=== PATIENT | female | born 1985 | race Caucasian/White ===

== ENCOUNTER 2018-03-02 18:13 | Emergency (ER) | payer OTHER ==
[2018-03-02 18:30] VITALS: BP 130/76
--- NOTE | 2018-03-02 18:46 | UC ---
- HPI Summary HPI Summary: 33 y/o female presents to the urgent care requesting a test. Pt reports she did a home test and was positive and wants to make sure she is . Pt has been feeling mild nausea when she wakes up for the past week. Pt has the [place] shot for the past 6 years and was stopped in 07/2017 and since then she has been trying to get . Pt denies fever, urinary symptoms, abdominal pain, SOB, chest pain, N/V/D, Hx of STD's, LMP: 12/30/2017 w/ irregular menstrual cycles. - History of Current Complaint Chief Complaint: UCGU Stated Complaint: TEST Time Seen by Provider: 03/02/18 18:40 Hx Obtained From: Patient Onset/Duration: Started Days Ago - mild nausea in the morning Severity: Mild Current Severity: Mild Pain Intensity: 0 Location of Pain: None Character: None Aggravating Factors: Nothing Alleviating Factors: Other: - eating Associated Signs and Symptoms: Positive: Negative - Assessment Hx Now: No History of Ectopic : No Hx Pelvic Inflammatory Disease: No Vaginal Bleeding Amount: None Hx Last Menstrual Period: 12/30/17 Hx Hysterectomy: No History of STI/STD: No - Risk Factors Ectopic Risk Factor: Maternal Age ^ 30 Ovarian Torsion Risk Factor: Reproductive Age - Additional Pertinent History Gestational Diabetes: No - Allergies/Home Medications Allergies/Adverse Reactions: Allergies Allergy/AdvReac Type Severity Reaction Status Date / Time No Known Allergies Allergy Verified 03/02/18 18:29 PMH/Surg Hx/FS Hx/Imm Hx Previously Healthy: Yes Respiratory History: Asthma Other Psychological History: ADHD - Surgical History Surgical History: Yes Surgery Procedure, Year, and Place: TONSILLECTOMY AND ADENOIDECTOMY. C- SECTIONS X2 - Family History Known Family History: Positive: Diabetes - Social History Occupation: Employed Full-time Lives: With Family Alcohol Use: None Substance Use Type: None Smoking Status (MU): Never Smoked Tobacco Review of Systems Constitutional: Negative Skin: Negative Eyes: Negative ENT: Negative Respiratory: Negative Cardiovascular: Negative Gastrointestinal: Nausea - in the morning resolves by eating Genitourinary: Negative Motor: Negative Neurovascular: Negative Musculoskeletal: Negative Neurological: Negative Psychological: Negative Is Patient Immunocompromised?: No All Other Systems Reviewed And Are Negative: Yes Physical Exam - Summary Physical Exam Summary: VITAL SIGNS: Reviewed. GENERAL: Patient is a well developed and nourished female who is sitting comfortable in the examining table. Patient is not in any acute respiratory distress. HEAD AND FACE: No signs of trauma. No ecchymosis, hematomas or skull depressions. No sinus tenderness. EYES: PERRLA, EOMI x 2, No injected conjunctiva, clear watery eyes, no nystagmus. No photophobia. EARS: Hearing grossly intact. Ear canals and tympanic membranes are within normal limits. MOUTH: pharynx with no erythema, no exudates,no palatal petechiae. no B/L tonsillar enlargement Uvula in midline. NECK: Supple, trachea is midline, no lymphadenopathy, no JVD, no carotid bruit, no c-spine tenderness, neck with full ROM. CHEST: Symmetric, no tenderness at palpation LUNGS: Clear to auscultation bilaterally. No wheezing or crackles. CVS: Regular rate and rhythm, S1 and S2 present, no murmurs or gallops appreciated. ABDOMEN: Soft, non-tender. No signs of distention. No rebound no guarding, and no masses palpated. Bowel sounds are normal. BACK:no scoliosis or lesions, non tender to palpation, No B/L CVA tenderness EXTREMITIES: FROM in all major joints, no edema, no cyanosis or clubbing. NEURO: Alert and oriented x 3. No acute neurological deficits. Speech is normal and follows commands. SKIN: Dry and warm - Physical Exam Triage Information Reviewed: Yes Course/Dx - Course Course Of Treatment: 33 y/o female presents to the urgent care requesting a test. Pt reports she did a home test and was positive and wants to make sure she is . Pt has been feeling mild nausea when she wakes up for the past week. Pt has the [place] shot for the past 6 years and was stopped in 07/2017 and since then she has been trying to get . Pt denies fever, urinary symptoms, abdominal pain, SOB, chest pain, N/ V/D, Hx of STD's. LMP: 12/30/2017 w/ irregular menstrual cycles. Hx obtained. PE: WNL. Urine test ordered: positive, UA: + ketones. HCG ordered and sent to lab. Pt will be notified of result. Pt advised to increase hydration and eat well. Pt Rx Vitamins and advised to f/u w/ OBGYN Dr Patrick for care. D/C instructions explained. Pt understood and agreed w/ plan of care. - Differential Diagnosis/HQI/PQRI: Cervicitis, Early , UTI - Diagnoses Provider Diagnoses: Discharge - Sign-Out/Discharge Documenting (check all that apply): Patient Departure - D/C home All imaging exams completed and their final reports reviewed: No Studies - Discharge Plan Condition: Stable Disposition: HOME Prescriptions: Vitamin TAB* 1 tab PO DAILY #1 bottle Patient Education Materials: (ED) Referrals: Bennett Patrick MD [Medical Doctor] - 1 Week Additional Instructions: 1- test is positive 2- HCG was sent to lab, you will be notified of result. 3- Please start taking Pre- Vitamins. Increase fluid intake, eat well and rest. 4- Please f/u w/ your OB[facility] or DR Patrick for your Pre care. - Billing Disposition and Condition Condition: STABLE Disposition: Home
== END 2018-03-02 19:15 | disposition home or self-care (01) ==
LOC: UCCORT 18:13
DX: Z32.01 Encounter for pregnancy test, result positive (principal)
CPT/HCPCS: 36415; 81003; 84702; 99202; G0463